=== PATIENT | female | born 1985 | race African-American/Black ===

== ENCOUNTER 2017-08-08 08:55 | Emergency (ER) | payer SELFPAY | END 2017-08-08 10:58 | disposition left against medical advice (07) | LOC: ERS 08:55 | DX: Z53.21 Procedure and treatment not carried out due to patient leaving prior to being seen by health care provider (principal) ==

== ENCOUNTER 2017-08-15 02:08 | Emergency (ER) | payer SELFPAY ==
[2017-08-15] MEDS ORDERED: predniSONE 20 MG TAB ONE (02:57)
== END 2017-08-15 03:37 | disposition home or self-care (01) ==
LOC: ERS 02:08
DX: G56.93 Unspecified mononeuropathy of bilateral upper limbs (principal)
CPT/HCPCS: 99283; J7506

== ENCOUNTER 2017-09-05 08:30 | Emergency (ER) | payer SELFPAY | END 2017-09-05 08:57 | disposition home or self-care (01) | LOC: ERS 08:30 | DX: G56.03 Carpal tunnel syndrome, bilateral upper limbs (principal) | CPT/HCPCS: 99283 ==

== ENCOUNTER 2017-09-07 19:08 | Emergency (ER) | payer SELFPAY ==
--- NOTE | 2017-09-07 21:11 | RAD ---
THREE VIEWS RIGHT FOOT: Indication: Right foot injury. FINDINGS: No acute fracture or subluxation is evident. 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 Lisfranc al ignment is preserved. There is small exostosis seen off the plantar and medial aspect of the medial cuneiform which was nonspecific. Enthesopathic change seen off of the calcaneus. IMPRESSION: 1. No definite acute fracture or subluxation. 2. Suspected bifid great toe sesamoid. This can also be seen with sesamoid fractures. IF the patient is having pain in this location, the bipartite sesamoid may be related to a fracture. Recommend jose se clinical exam. 3. Benign appearing exostosis off the medial cuneiform. POS: [facility]
== END 2017-09-07 20:35 | disposition home or self-care (01) ==
LOC: ERS 19:08
DX: S93.601A Unspecified sprain of right foot, initial encounter (principal); W10.9XXA Fall (on) (from) unspecified stairs and steps, initial encounter

== ENCOUNTER 2023-07-12 11:58 | Emergency (ER) | payer SELFPAY ==
[2023-07-12] MEDS ORDERED: Ketorolac Tromethamine 30 MG/ML VIAL ONE (12:15)
[2023-07-12 12:55] LABS: SARS-CoV-2 NAA Rapid Test Not Detected (NotDetected)
== END 2023-07-12 13:44 | disposition home or self-care (01) ==
LOC: ERS 11:58
DX: J20.9 Acute bronchitis, unspecified (principal); Z20.822 Contact with and (suspected) exposure to COVID-19
CPT/HCPCS: 96372; 99283; J1885; U0002

== ENCOUNTER 2024-12-16 12:37 | Emergency (ER) | payer OTHER, SELFPAY | END 2024-12-16 15:30 | disposition home or self-care (01) | LOC: ERS 12:37 | DX: J06.9 Acute upper respiratory infection, unspecified (principal) | CPT/HCPCS: 87428; 99283 ==